=== PATIENT | female | born 1990 | race Caucasian/White ===

== ENCOUNTER 2017-05-13 10:11 | Emergency (ER) | payer MEDICAID ==
[~2017-05-13] VITALS: Ht 170.2 cm; Wt 100.0 kg
[2017-05-13 10:21] VITALS: BP 142/75
== END 2017-05-13 11:35 | disposition home or self-care (01) ==
LOC: ED 10:36
DX: K04.7 Periapical abscess without sinus (principal); J01.00 Acute maxillary sinusitis, unspecified
CPT/HCPCS: 99283

== ENCOUNTER 2017-09-29 17:08 | Emergency (ER) | payer MEDICAID ==
[~2017-09-29] VITALS: Ht 170.2 cm; Wt 121.8 kg
[2017-09-29] MEDS ORDERED: SODIUM CHLORIDE 0.9% 1,000 ML IV ONE (18:01)
[2017-09-29 18:23] LABS: BASOPHILS # (AUTO) 0.05 x10^3/uL (0-0.1); BASOPHILS % (AUTO) 1 % (0-1); EOSINOPHILS # (AUTO) 0.06 x10^3/uL (0-0.4); EOSINOPHILS % (AUTO) 1 % (1-7); LYMPHOCYTES # (AUTO) 2.64 x10^3/uL (1-3.4); LYMPHOCYTES % (AUTO) 23 % (22-44); MD NO; MEAN CORPUSCULAR HEMOGLOBIN 26.8 pg (27.0-34.8); MEAN CORPUSCULAR HGB CONC 33.1 g/dL (32.4-35.8); MEAN CORPUSCULAR VOLUME 81.1 fL (80-100); MEAN PLATELET VOLUME 9.2 fL (7.4-10.4); MONOCYTES # (AUTO) 0.72 x10^3/uL (0.2-0.8); MONOCYTES % (AUTO) 6 % (2-9); NEUTROPHILS # (AUTO) 7.86 x10^3/uL (1.8-6.8); NEUTROPHILS % (AUTO) 69 % (42-75); PLATELET COUNT 307 x10^3/uL (130-400); RED BLOOD COUNT 4.96 x10^6/uL (3.82-5.3); RED CELL DISTRIBUTION WIDTH 15.9 % (9.6-15.2)
[2017-09-29] MEDS ORDERED: SODIUM CHLORIDE 0.9% 1,000ML IVBOLUS ONE (18:30)
[2017-09-29 18:35] LABS: ALANINE AMINOTRANSFERASE 19 U/L (12-78); ALBUMIN 3.3 g/dL (3.4-5.0); ANION GAP 12 mmol/L (5-15); CALCIUM 8.8 mg/dL (8.5-10.1); CHLORIDE 106 mmol/L (98-107); CREATININE 0.59 mg/dL (0.55-1.02)
[2017-09-29 18:52] LABS: ALKALINE PHOSPHATASE 53 U/L (45-117); BILIRUBIN,TOTAL 0.2 mg/dL (0.2-1.0); TOTAL PROTEIN 7.7 g/dL (6.4-8.2)
[2017-09-29 19:55] VITALS: BP 120/82
[2017-09-29 19:55] LABS: CULTURE INDICATED? YES; MICROSCOPIC INDICATED
== END 2017-09-29 19:58 | disposition home or self-care (01) ==
LOC: ED 19:52
DX: O20.0 Threatened abortion (principal); Z3A.11 11 weeks gestation of pregnancy; R82.99 Other abnormal findings in urine
CPT/HCPCS: 36415; 76801; 80053; 81001; 84702; 85025; 86901; 87086; 96360; 99285; J7030

== ENCOUNTER 2017-11-05 13:42 | Emergency (ER) | payer MEDICAID ==
[~2017-11-05] VITALS: Ht 170.2 cm; Wt 116.7 kg
[2017-11-05 13:44] VITALS: BP 124/78
== END 2017-11-05 14:54 | disposition home or self-care (01) ==
LOC: ED 14:15
DX: O26.892 Other specified pregnancy related conditions, second trimester (principal); K02.9 Dental caries, unspecified; Z3A.17 17 weeks gestation of pregnancy
CPT/HCPCS: 99283

== ENCOUNTER 2018-03-02 05:24 | Emergency (ER) | payer MEDICAID ==
[~2018-03-02] VITALS: Ht 180.3 cm; Wt 116.8 kg
[2018-03-02 05:25] VITALS: BP 112/70
== END 2018-03-02 06:13 | disposition home or self-care (01) ==
LOC: ED 06:00
DX: O99.613 Diseases of the digestive system complicating pregnancy, third trimester (principal); K02.9 Dental caries, unspecified; Z3A.34 34 weeks gestation of pregnancy
CPT/HCPCS: 99283

== ENCOUNTER 2018-03-26 03:29 | Outpatient (CLI) | payer MEDICAID ==
[2018-03-26 04:19] LABS: MICROSCOPIC INDICATED
[2018-03-26 04:28] LABS: AMPHETAMINE SCREEN, URINE Negative (Negative); BARBITURATE SCREEN, URINE Negative (Negative); BENZODIAZEPINE SCREEN, URINE Negative (Negative); CANNABINOID SCREEN, URINE Negative (Negative); COCAINE SCREEN, URINE Negative (Negative); METHADONE SCREEN, URINE Negative (Negative); OPIATE SCREEN, URINE Negative (Negative)
== END 2018-03-26 04:56 | disposition home or self-care (01) ==
LOC: LDOP 03:29
PROVIDERS: ATTEND Obstetrics & Gynecology Gynecology
DX: O26.899 Other specified pregnancy related conditions, unspecified trimester (principal); R10.9 Unspecified abdominal pain; Z3A.00 Weeks of gestation of pregnancy not specified
CPT/HCPCS: 59025; 80307; 81001; 87086; 99211; G0463

== ENCOUNTER 2018-04-03 03:45 | Outpatient (CLI) | payer MEDICAID ==
[~2018-04-03] VITALS: Ht 170.2 cm; Wt 114.5 kg
[2018-04-03 03:55] VITALS: BP 130/79
[2018-04-03 05:16] LABS: MICROSCOPIC INDICATED
[2018-04-03 05:28] LABS: AMPHETAMINE SCREEN, URINE Negative (Negative); BARBITURATE SCREEN, URINE Negative (Negative); BENZODIAZEPINE SCREEN, URINE Negative (Negative); CANNABINOID SCREEN, URINE Negative (Negative); COCAINE SCREEN, URINE Negative (Negative); METHADONE SCREEN, URINE Negative (Negative); OPIATE SCREEN, URINE Negative (Negative)
[2018-04-03] MEDS ORDERED: PNV11TAB5 PO (06:02)
== END 2018-04-03 05:01 | disposition left against medical advice (07) ==
LOC: LDOP 03:45
PROVIDERS: ATTEND Obstetrics & Gynecology
DX: O26.893 Other specified pregnancy related conditions, third trimester (principal); R10.9 Unspecified abdominal pain; Z3A.38 38 weeks gestation of pregnancy
CPT/HCPCS: 59025; 80307; 81001; 87086; 99211; G0463

== ENCOUNTER 2018-04-11 17:47 | Outpatient (CLI) | payer MEDICAID ==
[~2018-04-11] VITALS: Ht 170.2 cm; Wt 114.5 kg
[~2018-04-11 17:47] MED LIST: PNV11TAB5 PO
[2018-04-11 19:04] LABS: MICROSCOPIC INDICATED
[2018-04-11 19:09] LABS: AMPHETAMINE SCREEN, URINE Negative (Negative); BARBITURATE SCREEN, URINE Negative (Negative); BENZODIAZEPINE SCREEN, URINE Negative (Negative); CANNABINOID SCREEN, URINE Negative (Negative); COCAINE SCREEN, URINE Negative (Negative); METHADONE SCREEN, URINE Negative (Negative); OPIATE SCREEN, URINE Negative (Negative)
[2018-04-11 19:52] LABS: BASOPHILS # (AUTO) 0.01 x10^3/uL (0-0.1); BASOPHILS % (AUTO) 0 % (0-1); EOSINOPHILS # (AUTO) 0.09 x10^3/uL (0-0.4); EOSINOPHILS % (AUTO) 1 % (1-7); LYMPHOCYTES # (AUTO) 2.66 x10^3/uL (1-3.4); LYMPHOCYTES % (AUTO) 24 % (22-44); MD NO; MEAN CORPUSCULAR HEMOGLOBIN 26.9 pg (27.0-34.8); MEAN CORPUSCULAR HGB CONC 33.3 g/dL (32.4-35.8); MEAN CORPUSCULAR VOLUME 80.7 fL (80-100); MEAN PLATELET VOLUME 9.9 fL (7.4-10.4); MONOCYTES # (AUTO) 0.97 x10^3/uL (0.2-0.8); MONOCYTES % (AUTO) 9 % (2-9); NEUTROPHILS # (AUTO) 7.32 x10^3/uL (1.8-6.8); NEUTROPHILS % (AUTO) 66 % (42-75); PLATELET COUNT 284 x10^3/uL (130-400); RED BLOOD COUNT 4.08 x10^6/uL (3.82-5.3); RED CELL DISTRIBUTION WIDTH 14.3 % (9.6-15.2)
[2018-04-11 19:53] LABS: ALBUMIN 2.4 g/dL (3.4-5.0); ANION GAP 10 mmol/L (5-15); CALCIUM 8.5 mg/dL (8.5-10.1); CHLORIDE 109 mmol/L (98-107)
[2018-04-11 19:57] LABS: ALANINE AMINOTRANSFERASE 17 U/L (12-78); ALKALINE PHOSPHATASE 142 U/L (45-117); BILIRUBIN,TOTAL 0.3 mg/dL (0.2-1.0); CREATININE 0.59 mg/dL (0.55-1.02); TOTAL PROTEIN 6.8 g/dL (6.4-8.2)
== END 2018-04-11 20:30 | disposition left against medical advice (07) ==
LOC: LDOP 17:47
PROVIDERS: ATTEND Obstetrics & Gynecology
DX: O26.893 Other specified pregnancy related conditions, third trimester (principal); R10.9 Unspecified abdominal pain; O13.3 Gestational [pregnancy-induced] hypertension without significant proteinuria, third trimester; Z3A.39 39 weeks gestation of pregnancy
CPT/HCPCS: 36415; 59025; 80053; 80307; 81001; 82570; 84156; 84550; 85025; 86850; 86900; 87806; 99211; G0463; G0475

== ENCOUNTER 2018-04-20 03:15 | Emergency (ER) | payer MEDICAID ==
[~2018-04-20] VITALS: Ht 170.2 cm; Wt 112.2 kg
[2018-04-20 03:16] VITALS: BP 120/73
== END 2018-04-20 04:11 | disposition home or self-care (01) ==
LOC: ED 04:01
DX: Z48.01 Encounter for change or removal of surgical wound dressing (principal)
CPT/HCPCS: 99282

== ENCOUNTER 2018-04-28 02:15 | Emergency (ER) | payer MEDICAID | END 2018-04-28 04:59 | disposition home or self-care (01) | LOC: ED 02:15 | DX: Z48.01 Encounter for change or removal of surgical wound dressing (principal) | CPT/HCPCS: 99281 ==

== ENCOUNTER 2018-05-26 20:43 | Emergency (ER) | payer MEDICAID ==
[~2018-05-26] VITALS: Ht 170.2 cm; Wt 106.4 kg
[2018-05-26 20:54] VITALS: BP 117/73
[2018-05-26] MEDS ORDERED: ACETAMINOPHEN 500 MG TABLET ONE (21:55)
[2018-05-26] MEDS ORDERED: IBUPROFEN 200 MG TABLET ONE (21:55)
[2018-05-26] MEDS ORDERED: ACETAMINOPHEN 500 MG TABLET PO ONE (22:00)
[2018-05-26] MEDS ORDERED: IBUPROFEN 200 MG TABLET PO ONE (22:00)
[2018-05-26] MEDS ORDERED: LIDODERM 5% PATCH TD ONE (22:00)
== END 2018-05-26 22:19 | disposition home or self-care (01) ==
LOC: ED 21:54
DX: M25.511 Pain in right shoulder (principal); F17.210 Nicotine dependence, cigarettes, uncomplicated; R20.2 Paresthesia of skin
CPT/HCPCS: 99283

== ENCOUNTER 2018-06-23 23:52 | Emergency (ER) | payer MEDICAID ==
[~2018-06-23] VITALS: Ht 170.2 cm; Wt 108.0 kg
[2018-06-23 23:57] VITALS: BP 123/80
[2018-06-24] MEDS ORDERED: CLINDAMYCIN 300 MG CAPSULE ONE (00:35)
[2018-06-24] MEDS ORDERED: CLINDAMYCIN 300 MG CAPSULE PO ONE (01:00)
== END 2018-06-24 00:50 | disposition home or self-care (01) ==
LOC: ED 06-24 00:43
DX: K08.89 Other specified disorders of teeth and supporting structures (principal)
CPT/HCPCS: 99283

== ENCOUNTER 2018-07-09 12:48 | Emergency (ER) | payer MEDICAID | END 2018-07-09 13:59 | disposition left against medical advice (07) | LOC: ED 13:53 | DX: R07.0 Pain in throat (principal); Z53.21 Procedure and treatment not carried out due to patient leaving prior to being seen by health care provider ==

== ENCOUNTER 2018-07-10 00:36 | Emergency (ER) | payer MEDICAID ==
[~2018-07-10] VITALS: Ht 170.2 cm; Wt 108.0 kg
[2018-07-10] MEDS ORDERED: ALBUTEROL/IPRATROPIUM 2.5MG/0.5MG, 3 ML NPPB ONE (01:00)
[2018-07-10] MEDS ORDERED: ALBUTEROL/IPRATROPIUM 2.5MG/0.5MG, 3 ML ONE (01:25)
[2018-07-10 02:41] VITALS: BP 124/74
== END 2018-07-10 02:43 | disposition home or self-care (01) ==
LOC: ED 02:35
DX: J20.8 Acute bronchitis due to other specified organisms (principal); B96.89 Other specified bacterial agents as the cause of diseases classified elsewhere
CPT/HCPCS: 71046; 94640; 99284; J7620

== ENCOUNTER 2020-03-16 00:11 | Emergency (ER) | payer MEDICAID ==
[~2020-03-16] VITALS: Ht 172.7 cm; Wt 129.0 kg
[2020-03-16 00:12] VITALS: BP 123/76
[2020-03-16] MEDS ORDERED: LORazepam 1MG TABLET PO ONE (01:00)
[2020-03-16] MEDS ORDERED: LORazepam 1MG TABLET ONE (01:03)
--- NOTE | 2020-03-16 01:11 | NUR ---
ICE PACK PROVIDED TO PT REQUESTED. PT REFUSED ATIVAN AT THIS TIME. AWAITING CT RESULTS.
== END 2020-03-16 02:36 | disposition home or self-care (01) ==
LOC: ED 02:02
DX: S02.2XXA Fracture of nasal bones, initial encounter for closed fracture (principal); S09.90XA Unspecified injury of head, initial encounter; Y04.8XXA Assault by other bodily force, initial encounter; Y93.89 Activity, other specified; Y92.488 Other paved roadways as the place of occurrence of the external cause; Y99.8 Other external cause status
CPT/HCPCS: 70486; 99284